=== PATIENT | female | born 2000 | race Two or more races ===

== ENCOUNTER 2025-03-25 11:59 | Emergency (ER) | payer MEDICAID, SELFPAY ==
[2025-03-25 12:00] VITALS: BMI 32.1
[2025-03-25 12:06] VITALS: BP 142/93; PULSE 85; RESP 18; TEMP 36.6; O2SAT 98
--- NOTE | 2025-03-25 12:09 | XR_ITS ---
Examination: Complete OB ultrasound, less than 14 weeks, transabdominal Date and time of exam: March 25, 2025 1233 hours INDICATIONS: Pelvic cramping today Technique: Obstetrical ultrasound images less than 14 weeks performed via transabdominal imaging Findings: A normal shaped single intrauterine gestation is present in the uterus. pole 7.3 cm corresponds to 13 weeks 2 days gestational age Cardiac motion 150 BPM Ultrasonographic survey of visible and placental structures unremarkable. Amniotic fluid volume appears appropriate for this estimated gestational age. Right ovary 3.3 cm arterial flow Left ovary 4.7 cm arterial flow IMPRESSION: Viable intrauterine gestation 13 weeks 2 days.
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
== END 2025-03-25 13:42 | disposition home or self-care (01) ==
PROVIDERS: Emergency Provider Emergency Medicine
DX: O99.342 Other mental disorders complicating pregnancy, second trimester (principal); F41.9 Anxiety disorder, unspecified; O26.892 Other specified pregnancy related conditions, second trimester; R10.2 Pelvic and perineal pain; Z3A.14 14 weeks gestation of pregnancy
CPT/HCPCS: 76801; 99284

== ENCOUNTER 2025-04-19 13:47 | Emergency (ER) | payer MEDICAID, SELFPAY ==
[2025-04-19 13:47] VITALS: BMI 33.8
[2025-04-19 14:13] VITALS: BP 122/80; PULSE 94; RESP 18; TEMP 37.2; O2SAT 97
--- NOTE | 2025-04-19 14:26 | EDNOTE_ITS ---
ED General RME/HPI General Chief complaint: Fever Stated complaint: FEVER/VOMITING SINCE LAST NIGHT Time Seen by Provider: 04/19/25 13:53 Arrival date/time: 04/19/25 13:47 This is a 24-year-old female that comes into the emergency room with complaints of headache fever, vomiting. Patient currently was being treated for a viral illness by primary doctor. Patient states she is not able to keep anything down. pT STATES SHE IS APPROX 18 WEEKS Related Data Previous Rx's ?Medication ?Instructions ?Recorded ondansetron 4 mg disintegrating 4 mg PO Q6H PRN nausea and 09/28/18 tablet vomiting #14 tabs Allergies Allergy/AdvReac Type Severity Reaction Status Date / Time No Known Allergies Allergy Verified 04/19/25 13:51 Course Orders Category Date Time Status Bedside COVID-19 Antigen Test NOW Care 04/19/25 14:25 Active Bedside Influenza A&B Antigen Test NOW Care 04/19/25 14:26 Completed Urinalysis, C/S if Indicated Stat Lab 04/19/25 14:45 Completed Urine Culture Stat Lab 04/19/25 14:45 Received Acetaminophen Tab [Tylenol ES Tab] Med 04/19/25 14:25 Discontinued 1,000 mg PO X1 ONE Ondansetron Odt [Zofran Odt] Med 04/19/25 14:25 Discontinued 4 mg PO X1 ONE Vital Signs Vital signs: Vital Signs Temperature 98.9 F 04/19/25 14:13 Pulse Rate 94 04/19/25 14:13 Respiratory Rate 18 04/19/25 14:13 Blood Pressure 122/80 04/19/25 14:13 Pulse Oximetry (%) 97 04/19/25 14:13 Oxygen Delivery Method Room Air 04/19/25 14:13 Medical Decision Making MDM Narrative MDM Narrative: Influenza negative. COVID-negative. Urine unremarkable. Patient given Tylenol and Zofran. Patient told to rest and drink plenty of fluids. Patient is to follow-up with primary provider in 1 to 2 days. Come back to emergency room if symptoms change or worsen. pT HAS NOT HAD VOMITING EPISODES IN ed Lab Data Labs: Lab Results 04/19/25 Range/Units 14:45 Ur Collection Type Voided Urine Color Lt-Yellow (Lt Yel-Yel) Urine Clarity Clear (Clear/Hazy) Urine pH 6.0 (5.0-7.0) Ur Specific [place] 1.025 (1.001-1.035) Urine Protein Trace (Neg - Trace) Urine Glucose (UA) Negative (Negative) Urine Ketones 3+ A (Negative) Urine Blood Negative (Negative) Urine Nitrite Negative (Negative) Urine Bilirubin Negative (Negative) Urine Urobilinogen (Auto) Negative (0.0-1.0) mg/dL Ur Leukocyte Esterase Negative (Negative) Urine RBC 2 (0-3) /hpf Urine WBC 1 (0-5) /hpf Ur Squamous Epith Cells 9 H (0-5) /hpf Ur Transition Epith Cell < 1 (0-5) /hpf Urine Bacteria 1+ A (None) Ur Culture Indicated? Yes MDM (ped) Medications Medication administrations:: Medication Administration History Discontinued Medications Acetaminophen (Acetaminophen 500 Mg Tablet) 1,000 mg PO X1 ONE Stop: 04/19/25 14:26 Ondansetron HCl (Ondansetron Odt 4 Mg Tabrap) 4 mg PO X1 ONE; Protocol Stop: 04/19/25 14:26 Discharge Plan Plan Patient Disposition: HOME (Self Care) Patient condition on transfer: Stable Prescriptions/Referrals Prescriptions/Med Rec: No Action ondansetron 4 mg tablet,disintegrating 4 mg PO Q6H PRN (Reason: nausea and vomiting) Qty: 14 0RF Referrals: No Primary/Family,Physician [Primary Care Provider] - In 1 week Problem List Clinical Impression: URI (upper respiratory infection) Patient/Caregiver Discharge Instructions Discharge Activity: activity as tolerated Education Materials: ED URI, Viral, No Abx (Adult) Additional Instructions: Follow up with primary provider in 1-2 days. Come back to ED if symptoms change or worsen Print Language: Citizen [place] Stand Alone Forms: Jeaneth Award Info., Patient Portal Info Letter PA/JE Supervising Physician MIKAYLA/JE Supervising Physician: JULIO
[2025-04-19 14:58] LABS: Collection Type, Urine Voided
[2025-04-19 15:29] LABS: Bacteria,Urine 1+; Bilirubin,Urine Negative (Negative); Blood,Urine Negative (Negative); Clarity,Urine Clear (Clear/Hazy); Color,Urine Lt-Yellow (Lt Yel-Yel); Glucose, Urine Negative (Negative); Ketones,Urine 3+ (Negative); Leukocyte Esterase,Urine Negative (Negative); Nitrite,Urine Negative (Negative); Protein,Urine Trace (Neg - Trace); RBC,Urine 2 /hpf (0-3); Specific Gravity,Urine 1.025 (1.001-1.035); Squamous Epithelial Cell,Urine 9 /hpf (0-5); Transitional Epi Cells,Urine < 1 /hpf (0-5); Urobilinogen,Urine Negative mg/dL (0.0-1.0); WBC,Urine 1 /hpf (0-5)
[2025-04-19 15:36] LABS: Culture Indicated,Urine Yes
[2025-04-19] MEDS: ONDANSETRON ODT 4 MG TABRAP PO (17:17)
[2025-04-19] MEDS: ACETAMINOPHEN 500 MG TABLET 1000 MG PO (17:17)
== END 2025-04-19 17:21 | disposition home or self-care (01) ==
PROVIDERS: Nurse Practitioner Family; Emergency Provider Emergency Medicine
DX: O98.512 Other viral diseases complicating pregnancy, second trimester (principal); J06.9 Acute upper respiratory infection, unspecified; Z3A.18 18 weeks gestation of pregnancy
CPT/HCPCS: 81001; 87086; 87400; 87811; 99283; Q0162; A9270

== ENCOUNTER 2025-05-17 13:21 | Observation (INO) | payer MEDICAID, SELFPAY ==
[2025-05-17] VITALS (27 sets, daily range): BP systolic 113; BP diastolic 67; PULSE 83–106; RESP 26–98; TEMP 37.5; O2SAT 89–100; BMI 32.9
--- NOTE | 2025-05-17 14:02 | XR_ITS ---
Examination: Complete OB ultrasound greater than 14 weeks Date and time of exam: May 15, 2025, 1431 hrs. Labor evaluation, deceleration on examination this morning. Findings: Viable intrauterine single fetus with single amniotic sac presentation transverse, head maternal right Cardiac motion 155 BPM. Placenta posterior grade 1. Umbilical cord insertion seen. Amniotic fluid index 13.2 cm. Cervix 3.7 cm. Right ovary obscured by bowel gas. Left ovary 4.0 cm arterial flow Composite estimated gestational age based on BPD, head circumference, abdominal circumference, femur length is 20 weeks 6 days, estimated weight 366 g. Survey of intracranial anatomy, spinal anatomy, abdominal anatomy, four-chamber heart performed with no abnormalities identified. Impression: Viable intrauterine gestation transverse presentation.
[2025-05-17] MEDS: RINGERS LACTATED 1000 ML 1,000 ML 999 ML IV (14:15)
[2025-05-17] MEDS: ACETAMINOPHEN 500 MG TABLET 1000 MG PO (14:25)
[2025-05-17] MEDS: ONDANSETRON INJ 2 MG/ML INJ 2 ML 4 MG IVP (14:25)
[2025-05-17 14:39] LABS: Collection Type, Urine Clean Catch
[2025-05-17 14:42] LABS: Basophils # (Auto) 0.0 Thou/mm3 (0.0-0.2); Basophils % (Auto) 0 % (0-2.5); Eosinophils # (Auto) 0.1 Thou/mm3 (0.0-0.5); Eosinophils % (Auto) 1 % (0-10); Hematocrit 33.8 % (36.0-46.0); Hemoglobin 11.4 g/dL (12.0-16.0); Immature Granulocytes Auto 0.05 Thou/mm3 (0.00-0.00); Lymphocytes # (Auto) 0.8 Thou/mm3 (1.0-4.8); Lymphocytes % (Auto) 8 % (10-50); Mean Corpuscular HGB Conc 33.7 g/dl (31.0-37.0); Mean Corpuscular Hemoglobin 28.6 pg (25.0-35.0); Mean Corpuscular Volume 85 fL (80-100); Monocytes # (Auto) 0.7 Thou/mm3 (0.0-0.8); Monocytes % (Auto) 7 % (0-12); Neutrophils # (Auto) 8.6 Thou/mm3 (1.8-7.7); Neutrophils % (Auto) 84 % (37-80); Nucleated Red Blood Cell # 0.00 Thou/mm3 (0.00-0.00); Nucleated Red Blood Cell % 0 /100 WBC (0); Platelet Count 269 Thou/mm3 (140-440); RDW Standard Deviation 41.2 fL (36.4-46.3); Red Blood Count 3.98 Miln/mm3 (4.00-5.20); White Blood Count 10.1 Thou/mm3 (3.6-11.0)
[2025-05-17 15:01] LABS: Alanine Aminotransferase 18 U/L (10-49); Albumin, Serum 3.6 gm/dL (3.5-5.0); Albumin/Globulin Ratio 1.3 (1.2-2.2); Alkaline Phosphatase 72 U/L (46-116); Anion Gap 11 (7-16); Aspartate Amino Transferase 26 U/L (0-34); BUN/Creatinine Ratio 13 Ratio (12-20); Bilirubin,Total 0.5 mg/dL (0.3-1.2); Blood Urea Nitrogen < 5 mg/dL (9-23); Calcium 8.4 mg/dL (8.3-10.6); Calcium (Corrected) 8.7 mg/dL (8.5-10.1); Carbon Dioxide 20.8 mMol/L (20.0-31.0); Chloride 105 mMol/L (98-107); Creatinine (Component) 0.4 mg/dL (0.6-1.3); Estimated Creatinine Clearance 211.0 mL/min (>60); Globulin 2.8 gm/dL (2.3-3.5); Glucose 83 mg/dL (74-106); Osmolality,Calculated 270 (275-295); Potassium 3.2 mMol/L (3.4-5.1); Sodium 137 mMol/L (136-145); Total Protein 6.4 gm/dL (5.7-8.2); eGFR > 60 See Note
[2025-05-17 15:22] LABS: COVID-19 Antigen (In-House) Positive (Negative)
[2025-05-17 15:23] LABS: Influenza A Ag Negative; Influenza B Ag Negative
[2025-05-17 15:25] LABS: Bacteria,Urine Rare; Bilirubin,Urine Negative (Negative); Blood,Urine Negative (Negative); Clarity,Urine Clear (Clear/Hazy); Color,Urine Lt-Yellow (Lt Yel-Yel); Culture Indicated,Urine Not Indicated; Glucose, Urine Negative (Negative); Ketones,Urine 4+ (Negative); Leukocyte Esterase,Urine Negative (Negative); Nitrite,Urine Negative (Negative); PH,Urine 8.0 (5.0-7.0); Protein,Urine Negative (Neg - Trace); RBC,Urine 2 /hpf (0-3); Specific Gravity,Urine 1.016 (1.001-1.035); Squamous Epithelial Cell,Urine 11 /hpf (0-5); Urobilinogen,Urine Negative mg/dL (0.0-1.0); WBC,Urine < 1 /hpf (0-5)
[2025-05-17 15:37] LABS: Sperm,Urine Present
== END 2025-05-17 15:45 | disposition home or self-care (01) ==
PROVIDERS: Admitting Provider Obstetrics & Gynecology; Visit Provider Obstetrics & Gynecology
DX: O26.892 Other specified pregnancy related conditions, second trimester (principal); Z3A.20 20 weeks gestation of pregnancy; R06.02 Shortness of breath; R05.9 Cough, unspecified; R50.9 Fever, unspecified; R11.10 Vomiting, unspecified; R10.9 Unspecified abdominal pain; O32.2XX0 Maternal care for transverse and oblique lie, not applicable or unspecified
CPT/HCPCS: 36415; 59025; 59899; 76805; 80053; 81001; 85025; 87502; 87811; J2405; J7120; A9270

== ENCOUNTER 2025-09-04 00:44 | Observation (INO) | payer MEDICAID, SELFPAY ==
[2025-09-04] VITALS (22 sets, daily range): BP systolic 122–136; BP diastolic 77–84; PULSE 70–102; RESP 18–99; TEMP 36.8; O2SAT 82–99; BMI 39.2
== END 2025-09-04 02:39 | disposition home or self-care (01) ==
PROVIDERS: Admitting Provider Obstetrics & Gynecology; Visit Provider Obstetrics & Gynecology
DX: O47.03 False labor before 37 completed weeks of gestation, third trimester (principal); Z3A.36 36 weeks gestation of pregnancy
CPT/HCPCS: 59025; 59899